=== PATIENT | female | born 2000 | race Caucasian/White ===

== ENCOUNTER 2022-07-26 21:56 | Emergency (ER) | payer OTHER ==
[~2022-07-26] VITALS: Ht 157.5 cm; Wt 81.8 kg
[2022-07-26] MEDS ORDERED: APAP325T4 PO (22:04)
[2022-07-26] MEDS ORDERED: FAMO20TA PO (22:04)
[2022-07-26] MEDS ORDERED: HYDR-3363 PO (22:04)
[2022-07-26] MEDS ORDERED: SERT-141 PO (22:04)
[2022-07-26] MEDS ORDERED: CVS10CAP7 PO (22:04)
[2022-07-26] MEDS ORDERED: ARIP1TAB6 PO (22:04)
[2022-07-26 23:25] LABS: BASO # 0.1 10^3/uL (0.0-0.2); BASO % 0.4 % (0.0-1.0); EOS # 0.1 10^3/uL (0.0-0.5); EOS % 0.9 % (0.0-3.0); HEMATOCRIT 41.7 % (36.0-47.0); LYMPH # 3.1 10^3/uL (1.5-5.0); LYMPH % 26.5 % (24.0-44.0); MEAN CORPUSCULAR HEMOGLOBIN 29.5 pg (27.0-33.0); MEAN CORPUSCULAR HGB CONC 33.6 g/dl (32.0-36.5); MONO # 0.8 10^3/uL (0.0-0.8); MONO % 7.1 % (2.0-8.0); NEUTROPHILS # 7.6 10^3/uL (1.5-8.5); NEUTROPHILS % 64.8 % (36.0-66.0); PLATELET COUNT, AUTOMATED 320 10^3/uL (150-450); RED BLOOD COUNT 4.74 10^6/uL (4.00-5.40); WHITE BLOOD COUNT 11.8 10^3/uL (4.0-10.0)
[2022-07-27 00:03] LABS: ALBUMIN 4.1 GM/DL (3.2-5.2); ALT/SGPT 25 U/L (12-78); BILIRUBIN,DIRECT < 0.1 MG/DL (0.0-0.2); BILIRUBIN,TOTAL 0.2 MG/DL (0.2-1.0); HCG, SERUM QUANTITATIVE 4801 MIU/ML; LIPASE 158 U/L (73-393); TOTAL PROTEIN 7.5 GM/DL (6.4-8.2)
[2022-07-27 00:53] VITALS: BP 140/88
== END 2022-07-27 00:54 | disposition home or self-care (01) ==
LOC: M ED 21:56
DX: O26.891 Other specified pregnancy related conditions, first trimester (principal); R10.9 Unspecified abdominal pain; F43.10 Post-traumatic stress disorder, unspecified; F42.9 Obsessive-compulsive disorder, unspecified; F31.9 Bipolar disorder, unspecified; F32.A Depression, unspecified; Z88.0 Allergy status to penicillin; Z79.899 Other long term (current) drug therapy; Z3A.01 Less than 8 weeks gestation of pregnancy

== ENCOUNTER 2023-02-14 18:39 | Outpatient (CLI) | payer OTHER ==
[~2023-02-14] VITALS: Ht 157.5 cm; Wt 83.0 kg
[~2023-02-14 18:39] MED LIST: APAP325T4 PO; ARIP1TAB6 PO; CVS10CAP7 PO; FAMO20TA PO; HYDR-3363 PO; SERT-141 PO
[2023-02-14 18:45] VITALS: BP 122/79
[2023-02-14] MEDS ORDERED: PRENTAB9 PO (18:55)
[2023-02-14] MEDS ORDERED: LR 1,000 ML IV ONE (19:10)
[2023-02-14] MEDS ORDERED: LR 1,000 ML IV SCH (19:10)
[2023-02-14] MEDS ORDERED: hydrOXYzine 50 MG TAB PO STA (19:54)
[2023-02-14] MEDS ORDERED: ONDANSETRON 4MG 2ML VIAL IV PRN (19:55)
[2023-02-14 20:20] VITALS: BP 123/76
[2023-02-14 20:41] LABS: AMPHETAMINES URINE REFLEX NEGATIVE (NEGATIVE); BARBITURATES URINE REFLEX NEGATIVE (NEGATIVE); BENZODIAZEPINES URINE REFLEX NEGATIVE (NEGATIVE); CANNABINOIDS URINE REFLEX NEGATIVE (NEGATIVE); COCAINE METABOLITE URINE REFLE NEGATIVE (NEGATIVE); METHADONE URINE REFLEX NEGATIVE (NEGATIVE); OPIATES URINE REFLEX NEGATIVE (NEGATIVE); PHENCYCLIDINE URINE REFLEX NEGATIVE (NEGATIVE)
== END 2023-02-14 21:40 | disposition home or self-care (01) ==
LOC: M LDO 18:39
PROVIDERS: ATTEND Advanced Practice Midwife
DX: O26.893 Other specified pregnancy related conditions, third trimester (principal); M54.50 Low back pain, unspecified; Z3A.34 34 weeks gestation of pregnancy
CPT/HCPCS: 80307; 96360; 96361; 96374; J2405